=== PATIENT | female | born 1980 | race Hispanic/Latino ===

== ENCOUNTER 2021-03-06 09:43 | Outpatient (CLI) | payer OTHER | END 2021-03-06 09:44 | disposition home or self-care (01) | LOC: BICULT 09:43 | PROVIDERS: ATTEND Family Medicine | DX: E04.1 Nontoxic single thyroid nodule (principal) | CPT/HCPCS: 76536 ==

== ENCOUNTER 2021-03-14 12:08 | Day surgery (SDC) | payer OTHER ==
[2021-03-13 11:00] VITALS: BMI 27.4
[2021-03-14] MEDS ORDERED: Lidocaine 1% PF 5 ML VIAL ONE (12:32)
[2021-03-14] MEDS ORDERED: Sodium Bicarbonate 2.5 MEQ/5 ML VIAL ONE (12:32)
[2021-03-14 13:19] VITALS: BP 153/92; TEMP 98.4
== END 2021-03-14 13:35 | disposition home or self-care (01) ==
LOC: ULT 12:08
PROVIDERS: ATTEND Family Medicine
PROC: 0G9H3ZX Drainage of Right Thyroid Gland Lobe, Percutaneous Approach, Diagnostic (ICD-10-PCS; principal; 2021-03-14)
DX: E04.1 Nontoxic single thyroid nodule (principal); S22.080A Wedge compression fracture of T11-T12 vertebra, initial encounter for closed fracture; H81.10 Benign paroxysmal vertigo, unspecified ear; W19.XXXA Unspecified fall, initial encounter
CPT/HCPCS: 60100; 76942; 88173

== ENCOUNTER 2023-11-05 13:03 | Outpatient (CLI) | payer OTHER | END 2023-11-05 13:04 | disposition home or self-care (01) | LOC: BICULT 13:03 | PROVIDERS: ATTEND Student in an Organized Health Care Education/Training Program | DX: R22.31 Localized swelling, mass and lump, right upper limb (principal); R22.42 Localized swelling, mass and lump, left lower limb; L72.3 Sebaceous cyst | CPT/HCPCS: 76999 ==

== ENCOUNTER 2024-01-01 08:17 | Outpatient (CLI) | payer OTHER | END 2024-01-01 08:18 | disposition home or self-care (01) | LOC: BICMRI 08:17 | PROVIDERS: ATTEND Surgery Surgery of the Hand | DX: M67.431 Ganglion, right wrist (principal); S63.591A Other specified sprain of right wrist, initial encounter ==